=== PATIENT | male | born 1960 | race Caucasian/White ===

== ENCOUNTER 2017-02-01 15:26 | Emergency (ER) | payer SELFPAY ==
[~2017-02-01] VITALS: Ht 172.7 cm; Wt 94.0 kg
[~2017-02-01 15:26] MED LIST: ASPI81TA82 PO; ATOR40TA PO; BYST10TA2 PO; CIPR750T10 PO; FLAG500T PO; NIAC250C6 PO; NORC7.5T PO
[2017-02-01 15:28] VITALS: BP 196/99; PULSE 84; RESP 14; TEMP 98.4; O2SAT 99
[2017-02-01] MEDS ORDERED: SODIUM CHLORIDE 0.9% FLUSH 10 ML FLUSH IVF PRN (16:45)
[2017-02-01] MEDS ORDERED: cloNIDine HCL 0.1 MG TAB PO ONE (17:00)
--- NOTE | 2017-02-01 17:04 | PD ---
HPI Chief Complaint: Cardiac Complaint Time Seen by Provider: 16:35 Travel History International Travel<30 days: No Contact w/Intl Traveler<30days: No Traveled to known affect area: No History of Present Illness HPI In came to the ER because he was worried about his heart rate being rapid and irregular. He does have history of A. fib and on baby aspirin for that. He had a spell of chest pressure and burning today. He attributed to his gastroesophageal reflux at the time. Currently chest pain-free. No syncope. No alleviating factors. Duration one day. Symptoms severity is moderate. PFSH Past Medical History Hx Anticoagulant Therapy: Yes (81MG ASA) Atrial Fibrillation: Yes Blood Disorders: No Anxiety: No Depression: No Cardiovascular Problems: Yes (HTN, AFIB) High Cholesterol: Yes Chemotherapy: No Cerebrovascular Accident: No Diabetes: No Diminished Hearing: No Headaches: Yes Hypertension: Yes Immune Disorder: No Neurologic: Yes Psychiatric: No Respiratory: No Seizures: No Tetanus Vaccination: Unknown Influenza Vaccination: No Past Surgical History Surgical History: No Previous Surgery Other Surgery: No Social History Alcohol Use: Yes Tobacco Use: Yes (2 PACKS DAILY) Substance Use: No Allergies-Medications (Allergen,Severity, Reaction): Coded Allergies: penicillin G (Unverified Allergy, Mild, MILD RASH, 02/01/17) PT UNSURE IF TRUE ALLERGY. STATES HAD TAKEN PCN MULTIPLE TIMES BUT LAST TIME HAD GOTTEN MILD RASH Reported Meds & Prescriptions Reported Meds & Active Scripts Active [place] 7.5/325 (Hydrocodone/Acetaminophen 7.5/325) 7.5 Mg/325 Mg Tab 1 Tab PO Q4H PRN Flagyl (Metronidazole) 500 Mg Tab 500 Mg PO TID 10 Days Ciprofloxacin 750 Mg Tab (Ciprofloxacin) 750 Mg Tab 750 Mg PO BID 10 Days Reported Niacin 250 Mg Cap 250 Mg PO ONCE Atorvastatin 40 mg (Atorvastatin Calcium) 40 Mg Tab 1 Tab PO DAILY Aspir-81 (Aspirin) 81 Mg Tab 81 Mg PO DAILY Bystolic 10 Mg Tab (Nebivolol) 10 Mg Tab 10 Mg PO HS Review of Systems General / Constitutional: No: Fever Eyes: No: Visual changes HENT: No: Headaches Cardiovascular: Positive: Chest Pain or Discomfort, Irregular Rhythm, Tachycardia Respiratory: No: Shortness of Breath Gastrointestinal: No: Abdominal Pain Genitourinary: No: Dysuria Musculoskeletal: No: Pain Skin: No Rash Neurologic: No: Weakness Psychiatric: No: Depression Endocrine: No: Polydipsia Hematologic/Lymphatic: No: Easy Bruising Physical Exam Narrative GENERAL: Well-nourished, well-developed patient in no apparent distress. SKIN: Focused skin assessment reveals no rash and nodules. Skin is Warm and dry. HEAD: Atraumatic. Normocephalic. EYES: Pupils equal and round. No scleral icterus. No injection or drainage. ENT: No nasal bleeding or discharge. Mucous membranes pink and moist. NECK: Trachea midline. No JVD. CARDIOVASCULAR: Regular rate and rhythm. No murmur appreciated. RESPIRATORY: No accessory muscle use. Clear to auscultation. Breath sounds equal bilaterally. GASTROINTESTINAL: Abdomen soft, non-tender, nondistended. Hepatic and splenic margins not palpable. MUSCULOSKELETAL: No obvious deformities. No clubbing. No cyanosis. No edema. NEUROLOGICAL: Awake and alert. No obvious cranial nerve deficits. Motor grossly within normal limits. Normal speech. PSYCHIATRIC: Appropriate mood and affect; insight and judgment normal. Data Data Last Documented VS Vital Signs Date Time Temp Pulse Resp B/P (MAP) Pulse Ox O2 Delivery O2 Flow Rate FiO2 02/01/17 18:07 73 20 177/88 (117) 98 Room Air 02/01/17 15:28 98.4 Orders Orders Electrocardiogram (02/01/17 16:43) Basic Metabolic Panel (Bmp) (02/01/17 16:43) Ckmb (Isoenzyme) Profile (02/01/17 16:43) Complete Blood Count With Diff (02/01/17 16:43) Magnesium (Mg) (02/01/17 16:43) Prothrombin Time / Inr (Pt) (02/01/17 16:43) Act Partial Throm Time (Ptt) (02/01/17 16:43) Troponin I (02/01/17 16:43) Chest, Single Ap (02/01/17 16:43) Ecg Monitoring (02/01/17 16:43) Iv Access Insert/Monitor (02/01/17 16:43) Oximetry (02/01/17 16:43) Sodium Chloride 0.9% Flush (Ns Flush) (02/01/17 16:45) Clonidine (Catapres) (02/01/17 17:00) CKMB (02/01/17 16:45) CKMB% (02/01/17 16:45) Labs Laboratory Tests Test 02/01/17 16:45 White Blood Count 7.9 TH/MM3 Red Blood Count 4.68 MIL/MM3 Hemoglobin 15.5 GM/DL Hematocrit 42.7 % Mean Corpuscular Volume 91.2 FL Mean Corpuscular Hemoglobin 33.1 PG Mean Corpuscular Hemoglobin Concent 36.3 % Red Cell Distribution Width 13.9 % Platelet Count 281 TH/MM3 Mean Platelet Volume 8.3 FL Neutrophils (%) (Auto) 55.7 % Lymphocytes (%) (Auto) 21.7 % Monocytes (%) (Auto) 18.0 % Eosinophils (%) (Auto) 2.5 % Basophils (%) (Auto) 2.1 % Neutrophils # (Auto) 4.4 TH/MM3 Lymphocytes # (Auto) 1.7 TH/MM3 Monocytes # (Auto) 1.4 TH/MM3 Eosinophils # (Auto) 0.2 TH/MM3 Basophils # (Auto) 0.2 TH/MM3 CBC Comment AUTO DIFF Differential Comment AUTO DIFF CONFIRMED Prothrombin Time 10.1 SEC Prothromb Time International Ratio 0.9 RATIO Activated Partial Thromboplast Time 28.0 SEC Blood Urea Nitrogen 13 MG/DL Creatinine 0.84 MG/DL Random Glucose 95 MG/DL Calcium Level 8.6 MG/DL Magnesium Level 2.4 MG/DL Sodium Level 134 MEQ/L Potassium Level 4.2 MEQ/L Chloride Level 101 MEQ/L Carbon Dioxide Level 25.4 MEQ/L Anion Gap 8 MEQ/L Estimat Glomerular Filtration Rate 95 ML/MIN Total Creatine Kinase 130 U/L Creatine Kinase MB 1.0 NG/ML Troponin I 0.03 NG/ML [facility] Medical Decision Making Medical Screen Exam Complete: Yes Emergency Medical Condition: Yes Medical Record Reviewed: Yes Differential Diagnosis Differential diagnosis includes [place], angina, pericarditis, pleurisy, GERD, anxiety. Narrative Course I have reviewed the patient's electronic medical record. IV placed I reviewed the EKG which shows sinus rhythm with no ectopy or ST elevation I reviewed the chest x-ray is normal Extended cardiac monitoring shows sinus rhythm without ectopy CBC is normal Metabolic profile is normal CK is normal Troponin is normal Coagulation studies are normal Had a lengthy discussion with the patient. He has multiple risk factors for CAD including hypertension and smoking. I've recommended observation and telemetry on the chest pain center to rule out cardiac cause of his symptoms. He thought about it for a while and is decided to decline. He will sign out AGAINST MEDICAL ADVICE. He says he will call his physician tomorrow and discuss the problem. Diagnosis Primary Impression: Chest pain Qualified Codes: R07.9 - Chest pain, unspecified Additional Impressions: Hypertension Qualified Codes: I10 - Essential (primary) hypertension Smoker Disposition: 07 AGAINST MEDICAL ADVICE Sidney Meyers MD Feb 01, 2017 17:04
[2017-02-01 17:06] VITALS: BP 157/81; PULSE 75; RESP 20; O2SAT 95
--- NOTE | 2017-02-01 17:13 | RADRPT ---
EXAM DATE/TIME: 02/01/2017 17:01 [place] COMPARISON: No previous studies available for comparison. INDICATIONS : Palpitations and chest pain. MEDICAL HISTORY : Gastroesophageal reflux disease. Hypertension SURGICAL HISTORY : None. ENCOUNTER: Initial ACUITY: 1 day PAIN SCORE: 3/10 LOCATION: Right chest FINDINGS: A single view of the chest demonstrates the lungs to be symmetrically aerated without evidence of mas s, infiltrate or effusion. The cardiomediastinal contours are unremarkable. Osseous structures are intact. CONCLUSION: No acute disease. Ivan Gonzalez MD FACR on February 01, 2017 at 17:11 Board Certified Radiologist. This report was verified electronically.
[2017-02-01 17:34] LABS: AUTOMATED NEUTROPHIL # 4.4 TH/MM3 (1.8-7.7); BASOPHIL # 0.2 TH/MM3 (0-0.2); BASOPHIL % 2.1 % (0.0-2.0); EOSINOPHIL # 0.2 TH/MM3 (0-0.4); EOSINOPHIL % 2.5 % (0.0-4.0); HEMATOCRIT 42.7 % (39.0-51.0); LYMPH % 21.7 % (9.0-44.0); LYMPHOCYTE # 1.7 TH/MM3 (1.0-4.8); MEAN CELL VOLUME 91.2 FL (80.0-100.0); MEAN CORPUSCULAR HEMOGLOBIN 33.1 PG (27.0-34.0); NEUT % 55.7 % (16.0-70.0); PLATELET COUNT 281 TH/MM3 (150-450); RED BLOOD COUNT 4.68 MIL/MM3 (4.50-5.90); RED CELL DISTRIBUTION WIDTH 13.9 % (11.6-17.2); WHITE BLOOD COUNT 7.9 TH/MM3 (4.0-11.0)
[2017-02-01 17:36] LABS: HEMO FLAGS AUTO DIFF; MEAN CORPUSCULAR HGB CONC 36.3 % (32.0-36.0)
[2017-02-01 17:39] LABS: INTERNATIONAL NORMALIZED RATIO 0.9 RATIO; PROTHROMBIN TIME - PATIENT 10.1 SEC (9.8-11.6)
[2017-02-01 17:59] LABS: ANION GAP 8 MEQ/L (5-15); BICARBONATE 25.4 MEQ/L (21.0-32.0); BLOOD UREA NITROGEN 13 MG/DL (7-18); CHLORIDE 101 MEQ/L (98-107); CREATINE KINASE 130 U/L (39-308); GLOMERULAR FILTRATION RATE 95 ML/MIN (>89); MAGNESIUM 2.4 MG/DL (1.5-2.5); POTASSIUM 4.2 MEQ/L (3.5-5.1); SODIUM (NA) 134 MEQ/L (136-145)
[2017-02-01 18:07] VITALS: BP 177/88; PULSE 73; RESP 20; O2SAT 98
[2017-02-01 18:11] LABS: SCAN/DIFF AUTO DIFF CONFIRMED
--- NOTE | 2017-02-02 14:01 | EKG ---
Date Performed: 02/01/2017 Time Performed: 16:49:49 PTAGE: 56 years EKG: Sinus rhythm INCOMPLETE RIGHT BUNDLE BRANCH BLOCK BORDERLINE ECG Compared to prior tracing no significant change PREVIOUS TRACING : 12/04/2007 16.29 DOCTOR: Carolina Bocanegra Interpretating Date/Time 02/02/2017 13:56:17
== END 2017-02-01 19:06 | disposition left against medical advice (07) ==
LOC: NEPD 15:26
DX: R07.9 Chest pain, unspecified (principal); I45.10 Unspecified right bundle-branch block; I10 Essential (primary) hypertension; I48.91 Unspecified atrial fibrillation; K21.9 Gastro-esophageal reflux disease without esophagitis; E78.00 Pure hypercholesterolemia, unspecified; F17.200 Nicotine dependence, unspecified, uncomplicated; Z79.82 Long term (current) use of aspirin; Z79.899 Other long term (current) drug therapy
CPT/HCPCS: 71010; 80048; 82550; 82552; 83735; 84484; 85025; 85610; 85730; 93005; 99285